=== PATIENT | female | born 1950 | race Caucasian/White ===

== ENCOUNTER 2017-03-20 20:13 | Emergency (ER) | payer MEDICARE, OTHER ==
[~2017-03-20] VITALS: Ht 144.8 cm; Wt 72.7 kg
[~2017-03-20 20:13] MED LIST: ASPIRIN 81M81 MG/TA2 PO; DORYX100 PO; FLAGYL500 MG PO; LEVAQUIN 750MG750 M1 PO; MACROBID 1100 MG/CAP; NORVASC 10MG10 MG PO; PERCOCET 325 MG1 TA2 PO; PRAVACHOL 40MG40 MG PO; PREDNISONE20 MG PO; PROZAC 20MG20 MG PO; SYNTHROID0.05 MG/TA PO; VALTREX1 GM PO
[2017-03-20 20:18] VITALS: TEMP 97.8
[2017-03-20 20:58] LABS: BASO # 0.1 (0.0-0.2); BASO % 0.8 % (0.0-2.0); EOS # 0.1 (0.0-0.7); EOS % 1.9 % (0-4.0); GRAN # 2.6 (1.4-6.5); GRAN % 41.5 % (42.2-75.2); HEMATOCRIT 44.3 % (37.0-47.0); MEAN CELL VOLUME 94 fl (80.0-100.0); MEAN CORPUSCULAR HEMOGLOBIN 32 pg (27.0-31.0); MEAN CORPUSCULAR HGB CONC 34 g/dl (33.0-37.0); MEAN PLATELET VOLUME 10.4 fl (7.4-10.4); MONO # 0.5 (0.1-0.6); MONO % 7.6 % (1.7-9.3); PLATELET COUNT 235 K/mm3 (130-400); RED BLOOD COUNT 4.72 M/mm3 (4.10-5.30)
[2017-03-20 21:09] LABS: ALBUMIN 4.6 gm/dL (3.5-5.0); BILIRUBIN,TOTAL 0.4 mg/dL (0.0-1.0); C-REACTIVE PROTEIN 0.7 mg/dL (0.0-0.9); CALCIUM 9.8 mg/dL (8.4-10.2); CREATININE, serum 0.87 mg/dL (0.52-1.25); POTASSIUM 4.2 mmol/L (3.4-5.0); TOTAL PROTEIN 7.2 gm/dL (6.4-8.2)
[2017-03-20 23:20] VITALS: BP 157/75; PULSE 85
== END 2017-03-20 23:21 | disposition home or self-care (01) ==
LOC: COL.ER 20:13
PROVIDERS: Emergency Medicine
DX: K57.92 Diverticulitis of intestine, part unspecified, without perforation or abscess without bleeding (principal); I10 Essential (primary) hypertension; E03.9 Hypothyroidism, unspecified; Z90.710 Acquired absence of both cervix and uterus; Z90.89 Acquired absence of other organs; Z98.890 Other specified postprocedural states; Z79.82 Long term (current) use of aspirin
CPT/HCPCS: J7030; Q9967

== ENCOUNTER → 2017-05-30 | Outpatient (CLI) | payer MEDICARE, OTHER | LOC: MC.RAD 05-20 08:20 | DX: Z12.31 Encounter for screening mammogram for malignant neoplasm of breast (principal) ==

== ENCOUNTER → 2021-01-29 | Outpatient (CLI) | payer MEDICARE, OTHER | LOC: COL.RAD 13:00 | DX: I65.23 Occlusion and stenosis of bilateral carotid arteries (principal) | CPT/HCPCS: Q9967 ==

== ENCOUNTER → 2021-03-24 | Outpatient (CLI) | payer MEDICARE, OTHER | LOC: MC.RAD 10:09 | DX: Z12.31 Encounter for screening mammogram for malignant neoplasm of breast (principal) ==

== ENCOUNTER → 2022-04-01 | Outpatient (CLI) | payer MEDICARE, OTHER ==
[~2022-04-01] MED LIST changes: +CRESTOR20 MG PO; +DITROPAN XL 5MG5 M1 PO; +LEXAPRO 10MG10 MG PO; +LIORESAL 1010 MG/TAB PO; +NEURONTIN100 MG/CAP PO; -PRAVACHOL 40MG40 MG PO
== END ==
LOC: ZCOL.LAB 15:35
DX: J02.9 Acute pharyngitis, unspecified (principal); Z20.822 Contact with and (suspected) exposure to COVID-19

== ENCOUNTER 2022-06-18 09:45 | Outpatient (RCR) | payer MEDICARE, OTHER | END 2022-06-20 | disposition home or self-care (01) | LOC: MKS.ESL.PT | DX: I69.352 Hemiplegia and hemiparesis following cerebral infarction affecting left dominant side (principal) | CPT/HCPCS: G0283-GP ==

== ENCOUNTER 2022-10-20 10:30 | Outpatient (RCR) | payer MEDICARE, OTHER | END 2022-10-21 | disposition home or self-care (01) | LOC: MKS.ESL.PT | DX: I69.354 Hemiplegia and hemiparesis following cerebral infarction affecting left non-dominant side (principal) ==

== ENCOUNTER 2023-03-21 11:15 | Outpatient (RCR) | payer MEDICARE, OTHER | END 2023-03-23 | disposition home or self-care (01) | LOC: MKS.ESL.OT | DX: I69.352 Hemiplegia and hemiparesis following cerebral infarction affecting left dominant side (principal) ==

== ENCOUNTER 2023-04-18 09:45 | Outpatient (RCR) | payer MEDICARE, OTHER | END 2023-04-21 | disposition home or self-care (01) | LOC: MKS.ESL.OT | DX: I69.354 Hemiplegia and hemiparesis following cerebral infarction affecting left non-dominant side (principal) ==

== ENCOUNTER 2023-06-28 10:30 | Outpatient (RCR) | payer MEDICARE, OTHER | END 2023-07-22 | disposition home or self-care (01) | LOC: MKS.ESL.PT | DX: I69.354 Hemiplegia and hemiparesis following cerebral infarction affecting left non-dominant side (principal) ==

== ENCOUNTER → 2023-08-22 | Outpatient (CLI) | payer MEDICARE, OTHER | LOC: MHCPAIN 10:57 | DX: I69.359 Hemiplegia and hemiparesis following cerebral infarction affecting unspecified side (principal); R25.2 Cramp and spasm | CPT/HCPCS: G0463 ==

== ENCOUNTER 2023-09-19 10:30 | Outpatient (RCR) | payer MEDICARE, OTHER | END 2023-09-21 | disposition home or self-care (01) | LOC: MKS.ESL.OT | DX: I69.354 Hemiplegia and hemiparesis following cerebral infarction affecting left non-dominant side (principal) ==